=== PATIENT | female | born 1945 | race Caucasian/White ===

== ENCOUNTER 2018-05-01 11:06 | Observation (INO) | payer OTHER ==
[~2018-05-01] VITALS: Ht 162.6 cm; Wt 46.8 kg
[~2018-05-01 11:06] MED LIST: ACETAMINOPHEN-1 EAC1 PO; CIPRODEX OTIC7.5 ML RIGHT EAR; CYCLOBENZAPRINE5 MG PO; DOCUSATE SODIU100 MG PO; HYDROCODON-ACE1 EAC7 PO; LOMOTIL TABLET1 EACH PO; PROMETHAZINE HC25 M1 PO; TYLENOL REGULA325 MG PO
[2018-05-01 11:45] LABS: HEMATOCRIT 37.2 % (36.0-46.0); HEMOGLOBIN 12.7 G/DL (11.9-15.5); MCHC 34.1 G/DL (30.0-36.0); MCV 93.7 FL (83-99); RBC DIS.WIDTH-CV 12.3 % (11.8-14.6); RBC DIS.WIDTH-SD 42.5 % (39-53); RED BLOOD COUNT 3.97 M/uL (3.80-5.20); WHITE BLOOD COUNT 10.1 K/uL (4.1-10.2)
[2018-05-01 11:47] LABS: ALBUMIN 4.4 g/dL (3.2-4.8)
[2018-05-01 11:48] LABS: CHLORIDE 104 mEq/L (99-109); POTASSIUM 3.9 mEq/L (3.7-5.4); SODIUM 142 mEq/L (136-147)
[2018-05-01 11:50] LABS: GLUCOSE 100 mg/dL (70-99); TOTAL PROTEIN 7.3 g/dL (6.4-8.3)
[2018-05-01 11:52] LABS: TOTAL BILIRUBIN 0.6 mg/dL (0.0-1.0)
[2018-05-01 11:53] LABS: ALKALINE PHOSPHATASE 57 IU/L (3-129)
[2018-05-01 11:54] LABS: CREATININE 1.4 mg/dL (0.6-1.3); GFR ESTIMATE (CALCULATED) 40 mL/min/
[2018-05-01 11:55] LABS: AST (GOT) 18 IU/L (2-34); UREA NITROGEN (BUN) 30 mg/dL (9-23)
[2018-05-01 11:56] LABS: ALT (GPT) 25 IU/L (3-49)
[2018-05-01 12:26] LABS: PLATELET CLUMPS PRESENT - PLATELET COUNT APPEARS ADEQUATE; PLATELET COUNT UNABLE TO REPORT K/uL (156-360)
[2018-05-01 13:57] LABS: APPEARANCE CLEAR ((CLEAR)); BILIRUBIN NEGATIVE; BLOOD NEGATIVE; COLOR YELLOW ((YELLOW)); GLUCOSE (STRIP) NEGATIVE; KETONES NEGATIVE; LEUKOCYTES MODERATE; NITRITE NEGATIVE; PROTEIN (STRIP) NEGATIVE; UROBILINOGEN 0.2 MG/DL (0.2-1.0)
[2018-05-01 14:00] LABS: BACTERIA NONE SEEN /HPF; EPITHELIAL CELLS RARE /HPF; HYALINE CASTS 0-5 /LPF; MUCUS TRACE /LPF; RED BLOOD CELLS 0-5 /HPF (0-5); UCUL ADDED? NO; WHITE BLOOD CELLS 0-5 /HPF (0-5)
[2018-05-01] MEDS ORDERED: CENTRUM SILVER1 EAC4 PO (15:25)
[2018-05-01] MEDS ORDERED: ADVIL200 MG PO (15:25)
[2018-05-01 18:20] LABS: HDL CHOLESTEROL 60 MG/DL (Desirable>=50); LDL CHOLESTEROL 147 mg/dL (Desirable<100); NON-HDL CHOLESTEROL 173 mg/dL (Desirable<160); TOTAL CHOLESTEROL 233 mg/dL (Desirable<200); TRIGLYCERIDES 128 MG/DL (Normal: <150)
[2018-05-01 18:33] LABS: BENZODIAZEPINES, URINE SCREEN Negative (200 ng/mL)
[2018-05-01 19:48] VITALS: BP 126/79
[2018-05-02 00:10] VITALS: BP 125/60
[2018-05-02 04:09] VITALS: BP 125/58
[2018-05-02 05:54] LABS: CHLORIDE 107 MEQ/L (99-109); GFR ESTIMATE (CALCULATED) 58 mL/min/; GLUCOSE 84 mg/dL (70-99); POTASSIUM 3.7 MEQ/L (3.7-5.4); SODIUM 141 MEQ/L (136-147); UREA NITROGEN (BUN) 22 mg/dL (9-23)
[2018-05-02 07:34] VITALS: BP 106/54
[2018-05-02 11:56] LABS: HEMOGLOBIN A1c (GLYCOHEMOGLOB) 5.7 % (Below 5.7)
[2018-05-02] MEDS ORDERED: SIMVASTATIN20 MG PO (14:10)
[2018-05-02] MEDS ORDERED: ASPIRIN81 M2 PO (14:10)
== END 2018-05-02 15:38 | disposition home or self-care (01) ==
LOC: RME 11:06 → EME 11:06 → ENRESERV 17:02 → 4SOUTH 17:10 → ENRESERV 17:14 → EDOF 17:14 → ENRESERV 17:17 → 4SOUTH 19:26
PROVIDERS: Emergency Medicine; Physician Assistant
DX: R41.0 Disorientation, unspecified (principal); E86.0 Dehydration; N17.9 Acute kidney failure, unspecified; R03.0 Elevated blood-pressure reading, without diagnosis of hypertension; R73.9 Hyperglycemia, unspecified; Z87.820 Personal history of traumatic brain injury; F17.210 Nicotine dependence, cigarettes, uncomplicated; Z87.442 Personal history of urinary calculi
CPT/HCPCS: 70450; 70551; 80048; 80053; 80061; 80306 90; 81003; 83036; 85027; 95819; 99281; 99285; G0378; J1644; J7030